=== PATIENT | male | born 1985 | race Caucasian/White ===

== ENCOUNTER 2017-11-15 16:37 | Emergency (ER) | payer OTHER ==
[2017-11-15 18:24] VITALS: BP 147/96
--- NOTE | 2017-11-15 18:35 | UC ---
Lower Extremity/Ankle HPI - HPI Summary HPI Summary: 32 yo gentleman c/o R great toe MTP medial redness, mild itching, pain. Denies injury. No fever. No sore throat. Reports that he wore and ill fitting shoe on Saturday (today is Saturday), Saturday noted pain and above symptoms. Notes that he does have discomfort after wearing that type of shoe, but never this bad or this red. No fam hx of similar. Weight bearing has been challenging. - History of Current Complaint Chief Complaint: UCLowerExtremity Stated Complaint: BIG TOE COMPLAINT Time Seen by Provider: 11/15/17 18:34 Hx Obtained From: Patient Pain Intensity: 6 - Allergies/Home Medications Allergies/Adverse Reactions: Allergies Allergy/AdvReac Type Severity Reaction Status Date / Time mussels Allergy GI Upset Verified 11/15/17 18:24 Home Medications: Home Medications Ibuprofen TAB* [Advil TAB*] 200 mg PO BID 11/15/17 [History Confirmed 11/15/17] PMH/Surg Hx/FS Hx/Imm Hx Previously Healthy: Yes - Surgical History Surgical History: Yes Surgery Procedure, Year, and Place: Nose - Family History Known Family History: Positive: Other - denies fam hx gout - Social History Alcohol Use: Occasionally Substance Use Type: None Smoking Status (MU): Never Smoked Tobacco Review of Systems Constitutional: Negative Skin: Other - see hpi Eyes: Negative ENT: Negative Respiratory: Negative Cardiovascular: Negative Gastrointestinal: Negative Genitourinary: Negative Motor: Other - see hpi Neurovascular: Negative Musculoskeletal: Arthralgia Neurological: Negative Psychological: Negative Is Patient Immunocompromised?: No All Other Systems Reviewed And Are Negative: Yes Physical Exam Triage Information Reviewed: Yes Appearance: Well-Appearing, Well-Nourished Vital Signs: Initial Vital Signs Temp 98.2 F 11/15/17 18:20 Pulse 86 11/15/17 18:20 Resp 18 11/15/17 18:20 BP 147/96 11/15/17 18:20 Pulse Ox 99 11/15/17 18:20 Vital Signs Reviewed: Yes Eye Exam: Normal - eyes grossly normal ENT Exam: Normal - no c/os. ENT: Positive: Pharynx normal - no redness Neck exam: Normal Respiratory Exam: Normal - no tachypnea, no dyspnea RR regular Cardiovascular Exam: Normal - nondiaphoretic. HR regular Abdominal Exam: Normal - no GI sx Musculoskeletal Exam: Other - Right MTP redness, swelling, tender carlie dorsal lat. No crepitus. Tender with plantar flexion. Redness extends prox med apprx 1/[address] foot. Not hot. Neurological Exam: Normal Psychological Exam: Normal Skin Exam: Other - see [facility] [place] Lower Extremity Course/Dx - Course Course Of Treatment: Reviewed coa / tx plan . F/u Jonathan on Saturday recommended. Unclear if cellulitic vs arthritic. Highly suspicious of gout. Will draft roller picker abx, start tomorrow if uric acid negative. Will start anti-inflam today. Questions as posed answered to the best of my ability. - Differential Dx/Diagnosis Provider Diagnoses: Right MTP redness and swelling. Arthralgia Discharge - Sign-Out/Discharge Documenting (check all that apply): Patient Departure - Discharge Plan Condition: Stable Disposition: HOME Prescriptions: Colchicine* [Colcrys*] 0.6 mg PO DAILY #3 tab DOXYcycline CAP(*) [DOXYcycline 100MG CAP(*)] 100 mg PO BID #14 cap Indomethacin CAP* [Indocin CAP*] 25 mg PO TID PRN #20 cap PRN Reason: Pain Patient Education Materials: Cellulitis (ED), Gout (ED) Referrals: [facility] [Outside] Additional Instructions: Follow up with [facility] - call Saturday for appointment on Saturday or early Saturday. Seek medical attention for worse or new problems. - Billing Disposition and Condition Condition: STABLE Disposition: Home
[2017-11-16 14:39] LABS: Uric Acid 6.9 mg/dL (4.4-7.6)
--- NOTE | 2017-11-17 08:25 | UC ---
- Progress Note Progress Note: Noted sed rate 17 (0-14). Nonspecific inflamm marker. Uric acid 6.9. Remainder blood work as ordered not available. RN to call pt, encourage f/u Jonathan as advised. Seek medical attention for worse or new problems. Discharge - Sign-Out/Discharge Documenting (check all that apply): Patient Departure - Discharge Plan Condition: Stable Disposition: HOME Prescriptions: Colchicine* [Colcrys*] 0.6 mg PO DAILY #3 tab DOXYcycline CAP(*) [DOXYcycline 100MG CAP(*)] 100 mg PO BID #14 cap Indomethacin CAP* [Indocin CAP*] 25 mg PO TID PRN #20 cap PRN Reason: Pain Patient Education Materials: Cellulitis (ED), Gout (ED) Referrals: [facility] [Outside] Additional Instructions: Follow up with [facility] - call Saturday for appointment on Saturday or early Saturday. Seek medical attention for worse or new problems. - Billing Disposition and Condition Condition: STABLE Disposition: Home
--- NOTE | 2017-11-18 08:47 | UC ---
- Progress Note Progress Note: reviewed BMP non concerning pt with elevated CRP no change in treatment 11/18/2017 Discharge - Sign-Out/Discharge Documenting (check all that apply): Patient Departure - Discharge Plan Condition: Stable Disposition: HOME Prescriptions: Colchicine* [Colcrys*] 0.6 mg PO DAILY #3 tab DOXYcycline CAP(*) [DOXYcycline 100MG CAP(*)] 100 mg PO BID #14 cap Indomethacin CAP* [Indocin CAP*] 25 mg PO TID PRN #20 cap PRN Reason: Pain Patient Education Materials: Cellulitis (ED), Gout (ED) Referrals: [facility] [Outside] Additional Instructions: Follow up with [facility] - call Saturday for appointment on Saturday or early Saturday. Seek medical attention for worse or new problems. - Billing Disposition and Condition Condition: STABLE Disposition: Home
== END 2017-11-15 20:05 | disposition home or self-care (01) ==
LOC: UCEAST 16:37
DX: M79.89 Other specified soft tissue disorders (principal)
CPT/HCPCS: 36415; 80048; 84550; 85652; 86140; 99202; G0463